=== PATIENT | male | born 1970 | race Caucasian/White ===

== ENCOUNTER 2021-09-10 17:03 | Emergency (ER) | payer MEDICAID ==
[~2021-09-10] VITALS: Ht 177.8 cm; Wt 73.0 kg
[2021-09-10] MEDS ORDERED: ONDANSETRON HCL 4MG/2ML INJ IM ONE (18:15)
[2021-09-10] MEDS ORDERED: MORPHINE SULFATE 10 MG/ML CPJ IM ONE (18:15)
[2021-09-10 18:36] VITALS: BP 123/76
== END 2021-09-10 19:28 | disposition home or self-care (01) ==
LOC: ER 17:03
DX: M54.50 Low back pain, unspecified (principal); Z88.2 Allergy status to sulfonamides; Z88.6 Allergy status to analgesic agent; Z88.8 Allergy status to other drugs, medicaments and biological substances; Z98.890 Other specified postprocedural states
CPT/HCPCS: 96372; 99284; J2270; J2405

== ENCOUNTER 2021-09-12 09:12 | Emergency (ER) | payer MEDICAID ==
[~2021-09-12] VITALS: Ht 177.8 cm; Wt 73.0 kg
[2021-09-12 09:29] VITALS: BP 139/88
[2021-09-12] MEDS ORDERED: AMOX-424 PO (10:35)
[2021-09-12] MEDS ORDERED: HYDR-4001 PO ×2 (10:42→10:43)
== END 2021-09-12 10:48 | disposition home or self-care (01) ==
LOC: ER 09:12
DX: K04.7 Periapical abscess without sinus (principal); K02.9 Dental caries, unspecified; Z85.6 Personal history of leukemia; Z88.2 Allergy status to sulfonamides
CPT/HCPCS: 99283

== ENCOUNTER 2021-09-14 08:59 | Emergency (ER) | payer MEDICAID ==
[~2021-09-14] VITALS: Ht 177.8 cm; Wt 90.0 kg
[~2021-09-14 08:59] MED LIST: AMOX-424 PO; HYDR-4001 PO
[2021-09-14 09:31] VITALS: BP 121/87
[2021-09-14] MEDS ORDERED: GABA-529 MT (09:54)
[2021-09-14] MEDS ORDERED: COM10 MT (09:54)
== END 2021-09-14 10:13 | disposition home or self-care (01) ==
LOC: ER 09:11
DX: Z76.0 Encounter for issue of repeat prescription (principal); F11.10 Opioid abuse, uncomplicated; Z88.6 Allergy status to analgesic agent; Z88.8 Allergy status to other drugs, medicaments and biological substances; Z98.890 Other specified postprocedural states
CPT/HCPCS: 99281

== ENCOUNTER 2021-09-17 20:02 | Emergency (ER) | payer MEDICAID, OTHER ==
[~2021-09-17] VITALS: Ht 177.8 cm; Wt 69.0 kg
[~2021-09-17 20:02] MED LIST changes: +COM10 MT; +GABA-529 MT
[2021-09-17] MEDS ORDERED: ONDA4TAB5 MT (21:09)
[2021-09-17] MEDS ORDERED: MORPHINE SULFATE 4 MG/ML CPJ (NOT FOR IM USE) IV ONE (21:15)
[2021-09-17] MEDS ORDERED: MORPHINE SULFATE 10 MG/ML CPJ IM ONE (21:45)
[2021-09-17 23:00] VITALS: BP 126/77
== END 2021-09-17 23:00 | disposition home or self-care (01) ==
LOC: ER 20:02
DX: K08.89 Other specified disorders of teeth and supporting structures (principal); F11.10 Opioid abuse, uncomplicated; E05.90 Thyrotoxicosis, unspecified without thyrotoxic crisis or storm; Z98.890 Other specified postprocedural states; Z79.899 Other long term (current) drug therapy; Z88.2 Allergy status to sulfonamides
CPT/HCPCS: 96372; 99283; J2270

== ENCOUNTER 2021-12-31 21:25 | Emergency (ER) | payer OTHER ==
[~2021-12-31 21:25] MED LIST changes: +ONDA4TAB5 MT
== END 2021-12-31 22:54 | disposition left against medical advice (07) ==
LOC: ER 21:25
DX: Z53.21 Procedure and treatment not carried out due to patient leaving prior to being seen by health care provider (principal)

== ENCOUNTER 2022-01-01 01:10 | Emergency (ER) | payer OTHER ==
[~2022-01-01] VITALS: Ht 177.8 cm; Wt 72.0 kg
[2022-01-01 04:01] LABS: CLARITY URINE CLEAR (CLEAR); COLOR URINE YELLOW (YELLOW); KETONES URINE NEGATIVE (NEGATIVE); LEUKOCYTE ESTERASE URINE 3+ (NEGATIVE); NITRITE URINE POSITIVE (NEGATIVE); OCCULT BLOOD URINE NEGATIVE (NEGATIVE); PROTEIN URINE NEGATIVE (NEGATIVE); SPECIFIC GRAVITY URINE 1.013 (1.005-1.030); UROBILINOGEN URINE 0.2 E.U./dL (0.2-1.0)
[2022-01-01] MEDS ORDERED: CEPHALEXIN 250MG CAPSULE PO ONE (04:15)
[2022-01-01 04:33] VITALS: BP 141/96
== END 2022-01-01 05:15 | disposition home or self-care (01) ==
LOC: ER 01:10
DX: T83.038A Leakage of other urinary catheter, initial encounter (principal); E05.90 Thyrotoxicosis, unspecified without thyrotoxic crisis or storm; Z85.51 Personal history of malignant neoplasm of bladder; Z85.46 Personal history of malignant neoplasm of prostate; Z98.890 Other specified postprocedural states; Z88.2 Allergy status to sulfonamides; Z88.8 Allergy status to other drugs, medicaments and biological substances; Y84.6 Urinary catheterization as the cause of abnormal reaction of the patient, or of later complication, without mention of misadventure at the time of the procedure; Y92.018 Other place in single-family (private) house as the place of occurrence of the external cause
CPT/HCPCS: 81003; 99283

== ENCOUNTER 2022-01-02 01:49 | Emergency (ER) | payer OTHER ==
[~2022-01-02] VITALS: Ht 177.8 cm; Wt 72.8 kg
[2022-01-02 06:00] VITALS: BP 139/81
== END 2022-01-02 08:38 | disposition left against medical advice (07) ==
LOC: ER 02:16
DX: T83.518A Infection and inflammatory reaction due to other urinary catheter, initial encounter (principal); X58.XXXA Exposure to other specified factors, initial encounter; E78.00 Pure hypercholesterolemia, unspecified; Z98.890 Other specified postprocedural states; Z79.899 Other long term (current) drug therapy
CPT/HCPCS: 99281

== ENCOUNTER 2023-08-14 20:34 | Emergency (ER) | payer MEDICAID, OTHER ==
[~2023-08-14] VITALS: Ht 177.8 cm; Wt 77.0 kg
[2023-08-14 20:43] VITALS: BP 138/94; PULSE 134; RESP 16; TEMP 98.2; O2SAT 98
[2023-08-14 21:43] LABS: BASOPHILS % 0.4 % (0.0-2.0); EOSINOPHILS % 0.7 % (0.0-5.0); HEMATOCRIT. 38.3 % (42.0-52.0); HEMOGLOBIN. 12.9 g/dL (14.0-18.0); LYMPHOCYTES % 16.7 % (20.0-50.0); MEAN CORPUSCULAR HEMOGLOBIN 30.4 pg (28.0-32.0); MEAN CORPUSCULAR HGB CONC 33.7 g/dL (31.0-37.0); MEAN CORPUSCULAR VOLUME 90.1 fL (80.0-94.0); MEAN PLATELET VOLUME 7.1 fl (7.4-10.4); MONOCYTES % 8.7 % (2.0-8.0); NEUTROPHILS % 73.5 % (40.0-76.0); PLATELET 307 x1000/uL (130-400); RED BLOOD CELL COUNT 4.25 mill/uL (4.7-6.1); RED CELL DISTRIBUTION WIDTH 13.9 % (11.6-14.6); WHITE BLOOD COUNT 8.6 x1000/uL (4.5-11.0)
[2023-08-14 21:52] LABS: PROTHROMBIN TIME 10.8 sec (9.6-11.0)
[2023-08-14 21:59] LABS: ALANINE AMINOTRANSFERASE 25 IU/L (10-49); ALBUMIN 4.4 g/dL (3.2-4.8); ASPARTATE AMINOTRANSFERASE 41 IU/L (<34); BILIRUBIN TOTAL 3.2 mg/dL (0.1-1.0); CALCIUM 9.2 mg/dL (8.7-10.4); CARBON DIOXIDE 20 mEq/L (21-32); CHLORIDE 110 mEq/L (98-107); CREATININE 1.7 mg/dL (0.6-1.3); GLUCOSE 125 mg/dL (70-105); POTASSIUM 3.9 mEq/L (3.5-5.1); PROTEIN TOTAL 7.4 g/dL (6.0-8.3); SODIUM 138 mEq/L (136-145); UREA NITROGEN BLOOD 29 mg/dL (9-23)
== END 2023-08-15 03:00 | disposition left against medical advice (07) ==
LOC: ER 20:39
DX: R10.9 Unspecified abdominal pain (principal)
CPT/HCPCS: 36415; 71045; 74176; 80053; 83605; 84145; 85025; 93005; 99285

== ENCOUNTER 2023-08-17 18:36 | Emergency (ER) | payer MEDICAID ==
[~2023-08-17] VITALS: Ht 177.8 cm; Wt 77.1 kg
[2023-08-17 18:51] VITALS: O2SAT 98
[2023-08-17 20:12] LABS: BASOPHILS % 0.2 % (0.0-2.0); EOSINOPHILS % 0.6 % (0.0-5.0); HEMATOCRIT. 35.9 % (42.0-52.0); HEMOGLOBIN. 12.3 g/dL (14.0-18.0); LYMPHOCYTES % 16.3 % (20.0-50.0); MEAN CORPUSCULAR HEMOGLOBIN 30.4 pg (28.0-32.0); MEAN CORPUSCULAR HGB CONC 34.2 g/dL (31.0-37.0); MEAN CORPUSCULAR VOLUME 88.9 fL (80.0-94.0); MEAN PLATELET VOLUME 7.5 fl (7.4-10.4); MONOCYTES % 9.6 % (2.0-8.0); NEUTROPHILS % 73.3 % (40.0-76.0); PLATELET 300 x1000/uL (130-400); RED BLOOD CELL COUNT 4.04 mill/uL (4.7-6.1); RED CELL DISTRIBUTION WIDTH 13.8 % (11.6-14.6); WHITE BLOOD COUNT 10.2 x1000/uL (4.5-11.0)
[2023-08-17 20:24] LABS: ALANINE AMINOTRANSFERASE 44 IU/L (10-49); ALBUMIN 4.5 g/dL (3.2-4.8); ASPARTATE AMINOTRANSFERASE 83 IU/L (<34); BILIRUBIN TOTAL 2.5 mg/dL (0.1-1.0); CARBON DIOXIDE 21 mEq/L (21-32); CHLORIDE 108 mEq/L (98-107); CREATININE 1.4 mg/dL (0.6-1.3); GLUCOSE 113 mg/dL (70-105); POTASSIUM 3.4 mEq/L (3.5-5.1); PROTEIN TOTAL 7.3 g/dL (6.0-8.3); SODIUM 140 mEq/L (136-145); UREA NITROGEN BLOOD 29 mg/dL (9-23)
[2023-08-18] MEDS: ACETAMINOPHEN 325MG TABLET PO ONE (08:45)
[2023-08-18] MEDS: HYDROCODONE/ACETAMINOPHEN 10/325MG TABLET PO ONE (10:31)
[2023-08-18 11:27] VITALS: BP 122/78; PULSE 78; RESP 20; TEMP 98.7
== END 2023-08-18 11:30 | disposition home or self-care (01) ==
LOC: ER 18:36
DX: N17.9 Acute kidney failure, unspecified (principal); R10.31 Right lower quadrant pain; E78.00 Pure hypercholesterolemia, unspecified; Z79.899 Other long term (current) drug therapy
CPT/HCPCS: 80053; 85025; 36415; 93005; 99284; Z7610